=== PATIENT | female | born 1975 | race Caucasian/White ===

== ENCOUNTER 2020-01-26 12:59 | Outpatient (CLI) | payer BC, SELFPAY ==
--- NOTE | 2020-01-26 12:45 | XR_ITS ---
WS: [id number] ABDOMEN: SUPINE FILM HISTORY: UROLITHIASIS COMPARISON: 01/12/2019 Normal bowel gas pattern. No soft tissue abnormality. Numerous phleboliths in the pelvis. Right kidney: No renal or ureteral stone identified. Left kidney: No renal or ureteral stone identified. XR/XR KUB [id number] IMPRESSION: No renal or ureteral calcifications identified.
== END 2020-01-26 13:00 | disposition home or self-care (01) ==
LOC: RAD 13:02
PROVIDERS: PCP Electrodiagnostic Medicine; Visit Provider Urology
DX: N20.9 Urinary calculus, unspecified (principal)
CPT/HCPCS: 74018; 81001

== ENCOUNTER → 2020-02-21 14:58 | Outpatient (BNVA) | payer BC, SELFPAY | PROVIDERS: PCP Electrodiagnostic Medicine; Visit Provider Obstetrics & Gynecology | DX: N93.9 Abnormal uterine and vaginal bleeding, unspecified (principal); N85.2 Hypertrophy of uterus; D25.9 Leiomyoma of uterus, unspecified; N83.292 Other ovarian cyst, left side | CPT/HCPCS: 76830 ==

== ENCOUNTER → 2020-02-28 16:00 | Outpatient (BNVA) | payer BC, SELFPAY | PROVIDERS: PCP Electrodiagnostic Medicine; Visit Provider Obstetrics & Gynecology | DX: N93.9 Abnormal uterine and vaginal bleeding, unspecified (principal); Z12.4 Encounter for screening for malignant neoplasm of cervix | CPT/HCPCS: 81025; 88175 ==

== ENCOUNTER → 2020-03-01 13:05 | Outpatient (BNVA) | payer BC, SELFPAY | PROVIDERS: PCP Electrodiagnostic Medicine; Visit Provider Obstetrics & Gynecology | DX: N93.9 Abnormal uterine and vaginal bleeding, unspecified (principal); Z12.4 Encounter for screening for malignant neoplasm of cervix; Z12.39 Encounter for other screening for malignant neoplasm of breast | CPT/HCPCS: 88305 ==

== ENCOUNTER 2020-03-30 10:26 | Outpatient (CLI) | payer BC, SELFPAY ==
--- NOTE | 2020-03-30 10:30 | MM_ITS ---
WS: [id number] SCREENING DIGITAL MAMMOGRAM WITH CAD HISTORY: screening COMPARISON: 07/10/2018 and 06/02/2017 and 09/23/2014 Bilateral CC and MLO views submitted. Computer aided detection analyzed. Breast composition: The breasts are heterogeneously dense, which may obscure small masses. No suspici ous masses, microcalcifications or architectural distortion. MM/[id number] IMPRESSION: BI-RADS: 2-Benign FOLLOW UP: 1 Year Follow-up
== END 2020-03-30 10:27 | disposition home or self-care (01) ==
LOC: RADSHAW 10:28
PROVIDERS: PCP Electrodiagnostic Medicine; Visit Provider Obstetrics & Gynecology
DX: Z12.31 Encounter for screening mammogram for malignant neoplasm of breast (principal)
CPT/HCPCS: 77067

== ENCOUNTER → 2020-06-30 12:21 | Outpatient (BNVA) | payer BC, SELFPAY | PROVIDERS: PCP Electrodiagnostic Medicine; Visit Provider Obstetrics & Gynecology | DX: Z11.59 Encounter for screening for other viral diseases (principal) | CPT/HCPCS: 87635 ==

== ENCOUNTER 2020-07-06 10:14 | Inpatient (IN) | payer BC, SELFPAY ==
--- NOTE | 2020-07-03 08:59 | P.ANESASSM_ITS ---
Pre-Anesthetic Assessment Pre-Anesthetic Assessment: Height/Weight: Height 1.6 m Preop Diagnosis: abnormal uterine bleeding Proposed Procedure: Operation Date: 07/06/20 07:00 Proposed Procedures p Laparoscopic Assist Vaginal Hystectomy possible total abdominal hysterectomy, bilateral salpingectomy,possible oophorectomy 84928 N93.9 D25.9(Not Applicable) - Kenn Sahu MD s Salpingectomy possible oophorectomy(Bilateral) - Kenn Sahu MD Familial anesthetic complications: None Was Beta Ok taken within 24 ho urs: N/A Social: Social History: No alcohol and No tobacco Exam: Pre-Anes Outpt Exam: alert, oriented x 3, clear to auscultation bilaterally and regular rate & rhythm Airway: Cervical ROM: WNL MP: 2 Dentition: Full Neuropsych: Neuropsych: Anxiety and ARGUELLO Anesthetic Plan: ASA status: 1 Anesthesia: General Risk of > 500 ml blood loss (7ml/kg in children): No PFSH Anesthesia PFSH: Medical History Anxiety Diagnosed in 2005 and controlled with citalopram prescribed by Dr. Hill. She denies depressive symptoms No pertinent past medical history Denies history of: Hypertension, hypercholesterolemia, thyroid, heart, liver, lung disorders, DVT/PE, bleeding or clotting disorders. PCP: Dr. Hill Urolithiasis Has had problems with kidney stones since. Follows with Dr. Rosenthal. Surgical History History of extraction of renal calculus RIGHT URETERAL STONE EXTRACTION by Dr. Rosenthal in 2018 S/P ureteral stent placement [address] Rosenthal S/P wisdom tooth extraction Family History Father Chronic fatigue and immune dysfunction syndrome Diabetes Hyperlipidemia Hypertension Sister Breast cancer Diagnosed at age 32 Grandmother Colon cancer Maternal, diagnosed in her 50s Family/Other Colon cancer Maternal uncle, diagnosed in his 50s Mother Uterine cancer Diagnosed at age 68 Denies family history of Heart disease Thyroid condition Stroke Social History Smoking and tobacco status: never smoked Alcohol intake: unknown Data Anesthesia CBC & Chem 7: 07/03/20 09:15 Cardiac Studies: No Data to Display
[2020-07-03 09:08] VITALS: BMI 43.4
[2020-07-03 09:44] LABS: Basophils # 0.1 10^3/uL (0.0-0.1); Basophils % 0.9 %; Eosinophils # 0.3 10^3/uL (0.0-0.8); Eosinophils % 3.6 %; Hematocrit 39.9 % (37.0-47.0); Hemoglobin 12.2 g/dL (11.5-15.3); Lymphocytes # 1.3 10^3/uL (0.8-4.8); Lymphocytes % 18.9 %; Mean Corpuscular HGB Conc 30.6 g/dL (30.0-36.0); Mean Corpuscular Hemoglobin 24.3 pg (28.0-34.0); Mean Corpuscular Volume 79.5 fL (81-99); Mean Platelet Volume 9.9 fL (7.4-10.4); Monocytes # 0.4 10^3/uL (0.2-0.9); Monocytes % 5.9 %; Neutrophils # 4.91 10^3/uL (1.8-7.7); Neutrophils % 70.3 %; Nucleated Red Blood Cells % 0 %; Platelet Count 313 10^3/cmm (130-400); Red Blood Count 5.02 10^6/uL (4.1-5.3); Red Cell Distribution Width 14.2 % (12.1-15.1)
[2020-07-06] VITALS (20 sets, daily range): BP systolic 102–143; BP diastolic 50–83; PULSE 73–102; RESP 15–26; TEMP 36.6–37.2; O2SAT 92–98
[2020-07-06] MEDS: sodium chloride 0.9% 500 ML IV (06:20)
--- NOTE | 2020-07-06 06:24 | P.ANESUD_ITS ---
Pre-Anesthetic Update Pre-Anesthetic Assessment: Date of Surgery/Procedure: 07/06/20 Preop Steffanie gnosis: Abnormal uterine bleeding, fibroid uterus Proposed Procedure: Operation Date: 07/06/20 07:00 Proposed Procedures p Laparoscopic Assist Vaginal Hystectomy possible total abdominal hysterectomy, bilateral salpingectomy,possible oophorectomy 35497 N93.9 D25.9(Not Applicable) - Kenn Sahu MD s Salpingectomy possible oophorectomy(Bilateral) - Kenn Sahu MD Any changes to Pre-Anesthetic Assessment?: No Last Intake: Intake Last Liquid Date 07/05/20 Last Liquid Time 21:00 Last Solid Date 07/05/20 Last Solid Time 19:00 Vitals: Temperature 99 F 07/06/20 06:08 Temperature Source Temporal Artery S can 07/06/20 06:08 Pulse Rate 92 07/06/20 06:08 Pulse Rhythm 07/06/20 06:08 Pulse Strength 3+ Normal 07/06/20 06:08 Respiratory Rate 18 07/06/20 06:08 Blood Pressure 143/83 07/06/20 06:08 Blood Pressure Eduarda n 103 07/06/20 06:08 Pulse Oximetry 96 07/06/20 06:08 Oxygen Delivery Me thod 07/06/20 06:08 Exam: Pre-Anes Outpt Exam: alert, oriented x 3, clear to auscultation bilaterally and regular rate & rhythm Cardiac Studies: No Data to Display
[2020-07-06 06:50] LABS: OR HCG Qualitative Urine Negative (Negative)
--- NOTE | 2020-07-06 06:53 | W.PM.OPSUD ---
Surgery/Procedure H&P Update DATE OF PROCEDURE: July 06, 2020 DATE H&P PERFORMED: 06/12/20 H&P UPDATE INFORMATION: I have reviewed H&P completed within last 30 days, I have examined patient prior to procedure, No changes to prior documentation and H&P is in [facility] on date indicated PREOP DIAGNOSIS: Abnormal uterine bleeding, fibroid uterus PLANNED PROCEDURE: Operation Date: 07/06/20 07:00 Proposed Procedures p Laparoscopic Assist Vaginal Hystectomy possible total abdominal hysterectomy, bilateral salpingectomy,possible oophorectomy 75605 N93.9 D25.9(Not Applicable) - Kenn Sahu MD s Salpingectomy possible oophorectomy(Bilateral) - Kenn Sahu MD
[2020-07-06] MEDS: sodium chloride 0.9% 1,000 ML 30 ML IV (06:54)
--- NOTE | 2020-07-06 08:32 | SUR.OPER ---
Family Notified Of Patient's Status Via Phone.
--- NOTE | 2020-07-06 10:27 | P.OP_ITS ---
Operative Report Date of procedure: July 06, 2020 OPERATIVE REPORT Date of surgery: 07/06/2020 Date of dictation: 07/06/2020 Preoperative diagnosis: Fibroid uterus, abnormal uterine bleeding, obesity, dysmenorrhea Postoperative diagnosis/findings: Enlarged 14-week size fibroid uterus, 10 sedations obliterating the posterior cul-de-sac, normal ovaries bilaterally, normal right fallopian tube, enlarged left fallopian tube likely hydrosalpinx. Procedure done: Attempted laparoscopic hysterectomy converted to Total abdominal hysterectomy, bilateral salpingectomy, left oophorectomy. Specimens removed/disposition of specimens: Uterus, cervix, bilateral tubes, left ovary-sent to pathology Surgeon: Dr. Kenn Jiang Physician purchasing administrative assistant: Dr. avina Systems Integration Advisor: Keiry Anesthesia: General endotracheal tube anesthesia Estimated blood loss: 200 ml Intravenous fluids: 2 L of LR Urine output: 800 mL of clear urine at the end of the procedure. Medications: As per anesthesia records Complications: Attempted laparoscopic hysterectomy converted to open procedure given density lesions and obliteration of the posterior cul-de-sac and limited visualization secondary to the enlarged fibroid uterus making surgery more complicated. PROCEDURE: After consents were obtained, she was taken to the operating room where she was placed under general endotracheal tube anesthesia without any difficulty. She was placed supine on the table in lithotomy position. Her legs were placed in stirrups and care was taken to avoid pressure points. Exam under anesthesia revealed 12 to 14 weeks size anteverted enlarged uterus consistent with fibroid uterus. No adnexal masses.. She was then prepped and draped in usual sterile fashion. Weighted speculum and anterior wall retractors were placed in the vagina, cervix visualized and grasped with a tenaculum. ZUMI uterine manipulator was placed into the uterus without any difficulty. Reagan Catheter was placed, instruments were removed from the vagina and the legs were lowered. Attention was turned towards the abdomen where half percent Marcaine with epinephrine was injected in to her umbilicus. A 10 mm skin incision was made and a 10 mm port was placed through the umbilicus using an open Antunez technique. Once intra-abdominal entry was confirmed gas was turned on and intra-abdominal opening pressure was 2. The abdomen is insufflated until the pressure was 13. Survey of the abdomen no ideations at site of entry and no trauma at site of entry. No other gross abnormality were identified. The uterus was enlarged with fibroids consistent with preoperative diagnosis. The posterior cul-de-sac was not visualized secondary to filmy adhesions and decision was made to place later al ports in order to visualize the structures. Two 5 mm trocar was placed into the right and left lower quadrant under direct visualization after injecting Marcaine. -Using the Voyant and blunt dissection the filmy adhesions of the omentum onto the posterior aspect of the uterus were taken down. The right tube and ovary appeared normal. The uterus appeared to be more adherent to the left side and the left tube noted to be enlarged with hydro-/pyosalpinx and densely adherent to the posterior uterine wall and sidewall. Ovary appeared normal. These adhesions were taken down-about 20 minutes was spent on adhesiolysis. Once this was done there was some improvement in mobility although the enlarged fibroid uterus did make visualization especially in the posterior cul-de-sac a little bit more complicated. A 5 mm Voyant was introduced into the abdomen and the left infundibulopelvic ligament was clamped, cauterized x3 and then cut. No bleeding was noted. During this time a third 5 mm port was placed in the right lower quadrant to aid with surgery as the enlarged uterus made visualization difficult The voyant was used clamp cauterize and then cut the broad ligament under the fallopian tube and proceeding inferiorly just lateral to the uterus. The round ligament was also clamped, cauterized and cut. In this way the left fallopian tube, ovary and left side of the uterus was from the parametria. This was continued to the level just above the cervix. The same procedure was repeated on the right side and using the LigaSure -the right infundibulopelvic ligament, fallopian tube and round ligament were grasped, cauterized and cut. Good hemostasis was noted.The right-side of the uterus was thus freed from the parametria in a similar fashion. The ureters were visualized bilaterally well away from site of surgery. Next the anterior bladder flap was created and the bladder was pushed down. The uterine artery on the right side was able to be clamped and cut however the uterine artery and the left right was hard to clamp and cauterize given adhesions. Given poor visualization and continued radiations in the posterior cul-de-sac decision was made to convert to open surgery. All instruments removed from the abdomen and the abdomen was desufflated. Trochars were removed with the blunt probe in place. The ZUMI was removed from the uterus. A Pfannenstiel incision was made 2 cm above the pubic bone and this was carried down to the fascia using a combination of sharp and cautery dissection. Good hemostasis was achieved on the subcutaneous plane. The fascia was nicked in the midline and extended laterally using scissors. The fascia was then dissected off the underlying rectus muscle and the rectus muscle was in the midline and peritoneum entered bluntly. The peritoneal incision was stretched. The O'Suman-O'Hernadez retractor was placed after packing away the underlying bowel. With this the fibroid uterus was visualized. It was hard to get to the cervix past to be enlarged fibroid uterus and the body of the uterus was sharply cut off from the cervix using a scalpel taking care to avoid surrounding structures. Once this was done good visualization was obtained. The bladder was then off from the remainder of the cervix without any difficulty. The left uterine vessels were skeletonized clamped and tied off. Curved clamps were placed at the level of the internal os. These were cut, and then tied with 0 Vicryl suture bilaterally. The bladder was then sharply dissected away from the cervix until it was carried below the level of the cervix. The remaining portion of the parametria was then serially clamped, cut, and suture ligated with 0 Vicryl suture bilaterally until the bottom of the cervix was reached. At this point, sharply curved clamps were placed across the top of the vagina and the remaining portion of the cervix excised. With this the uterus and cervix were removed. The cervix was inspected and noted to be complete. The corners of the cuff were secured with 0 Vicryl suture in a Cate fashion bilaterally. The remaining portion of the vaginal cuff was closed with 0 Vicryl suture in an interrupted [id number] fashion. The area was thoroughly inspected and noted to be hemostatic. It was irrigated and noted to be hemostatic. Attention was then turned towards the left fallopian tube and ovary. It was grasped with a [place], IP ligament was in identified, the ureter was identified well away from the site of surgery. The IP ligament was then doubly clamped and suture ligated as well as free tied . With this the left fallopian tube and ovary was also removed and sent to pathology. Good hemostasis was noted at the IP ligament site. The right fallopian tube was grasped and the mesosalpinx identified clamped cut and tied in such a way to separate the entire right fallopian tube which was sent to pathology. Bilateral ureters were visualized and good peristalsis was noted. The right ovary appeared normal. The pelvis was irrigated once again and small area of oozing near the left of was made hemostatic with a [id number]-ar-pvwwl suture. With this good hemostasis was achieved. Surgicel was placed over the vaginal cuff. The packing and retractor was removed. The peritoneum was closed with a 2-0 plain in a continuous stitch. The rectus muscle was reapproximated with 2-0 plain suture in a mattress stitch. Good hemostasis was noted in the rectus muscle layer. The fascia was inspected for any defects and none were found and the fascia was closed with 0 Vicryl in continuous stitch. The subcutaneous plane was then irrigated and hemostasis was obtained using the Bovie. The subcutaneous plane was then reapproximated using 2-0 plain suture in a continuous manner. The skin was then closed with 4-0 Monocryl in a subcuticular fashion. Good reapproximation and hemostasis was noted. Steri-Strips were applied. The fascia on the umbilicus was closed with 0 Vicryl on a UR needle and good approximation was obtained. The skin incision on all 3 ports was closed with 4-0 Monocryl in a subcuticular fashion. Good reapproximation and hemostasis was noted. Marcaine was injected on the port sites. The incisions were dressed with Steri-Strips, Telfa and Tegaderm. Lap instrument and needle counts were correct x2. Patient was extubated without difficulty and taken to the recovery room in a stable condition. Reagan catheter was left in place. Pre-op Diagnosis: Abnormal uterine bleeding, fibroid uterus
--- NOTE | 2020-07-06 10:44 | SUR.PHASEI ---
1028 PT TO PACU SLEEPY WITH GOOD RESP PT OPENS EYES TO VERBAL STIMULI BUT DOES NOT RESPOND, VSS ABD LARGE SOFT WITH MULTIPLE SITES AND LARGE LOWER ABD DRESSING ALL D/I SCDS ON, VANG TO DD WITH STATLOCK TO RT THIGH, CLEAR URINE NOTED TO TUBING AND BAG. IV TO LT HAND #18 PATENT. 1045 PT ON RA TRIAL, PT DENIES PAIN AND NAUSEA, VSS
--- NOTE | 2020-07-06 10:50 | PM.PACU ---
PACU note Post-Anesthesia Exam: awake and vital signs stable Disposition: admitted
--- NOTE | 2020-07-06 11:17 | SUR.PHASEI ---
1105 PT TO FLOOR PER BED PT MORE AWAKE, NOW C/O OF CRAMPING (PAINFUL). PT MOVED TO BED WITH ASSIST OF 3 NURSES AND SLIDE BOARD, ABD SOFT DRESSING D/I ANA PAD D/I VANG PATENT. HANDOFF AT BEDSIDE WITH LANI SANABRIA.
--- NOTE | 2020-07-06 11:18 | SUR.PHASEI ---
1105 BP 128/75, HRE 78, RESP 18 SATS ON 2LNC 96%
[2020-07-06] MEDS: HYDROcodone-acetaminophen 5-325 mg Tablet PO ×3 (11:28→21:30)
[2020-07-06] MEDS: HYDROmorphone 1 mg/mL INJ 1 mL 1.5 MG IVP ×3 (11:28→22:41)
[2020-07-06] MEDS: ketorolac 30 mg/mL INJ 15 MG IVP (13:19)
[2020-07-06] MEDS: ondansetron 2 mg/ML SDV 2 mL 4 MG IVP ×2 (17:11→21:11)
[2020-07-07] MEDS: dextrose 5%-lactated ringers 1,000 ML 125 ML IV (02:52)
[2020-07-07] MEDS: ondansetron 2 mg/ML SDV 2 mL 4 MG IVP (04:38)
[2020-07-07] MEDS: HYDROcodone-acetaminophen 5-325 mg Tablet PO ×3 (05:02→16:47)
[2020-07-07 05:10] VITALS: BP 126/77; PULSE 62; RESP 16; TEMP 36.9; O2SAT 96
[2020-07-07 05:30] LABS: Hematocrit 34.5 % (37.0-47.0); Hemoglobin 10.4 g/dL (11.5-15.3); Mean Corpuscular HGB Conc 30.1 g/dL (30.0-36.0); Mean Corpuscular Hemoglobin 24.3 pg (28.0-34.0); Mean Corpuscular Volume 80.6 fL (81-99); Mean Platelet Volume 9.9 fL (7.4-10.4); Platelet Count 282 10^3/cmm (130-400); Red Blood Count 4.28 10^6/uL (4.1-5.3); Red Cell Distribution Width 14.5 % (12.1-15.1); White Blood Count 9.7 10^3/uL (4.0-10.0)
[2020-07-07] MEDS: diphenhydrAMINE 50 mg/mL SDV 1mL 12.5 MG IVP (08:24)
[2020-07-07] MEDS: docusate sodium 100 mg Capsule PO ×3 (08:24→18:08)
[2020-07-07 08:38] VITALS: BP 135/77; PULSE 82; RESP 17; TEMP 37.3
--- NOTE | 2020-07-07 09:48 | P.PN_ITS ---
Subjective Subjective: Interval history: SUBJECTIVE: Ms. Banda is feeling okay today. Has less pain than she did yesterday and reports having not as much nausea. She still has a lot of itching however the had not mentioned this to the nurses and has not taken any medication for this. She has done the incentive spirometer a few times. She has not voided since removal of the catheter and has not yet ambulated this morning. She does plan on being more mobile today. She has a few questions about surgery. OBJECTIVE/PHYSICAL EXAM: Gen.: No acute distress Heart: S1-S2 heard, regular rate and rhythm Lungs: Clear to auscultation bilaterally Abdomen: Soft, nondistended, hypoactive bowel sounds, tenderness around incisions Incision: Dressings removed, clean dry and intact with Steri-Strips. Legs: No calf tenderness, no pedal edema, SCDs in place. ASSESSMENT AND PLAN: 44-year-old 2 para 2-0-0-2 status post attempted LAVH converted to JAKE, postoperative day #1 -Continue routine care-encourage ambulation and incentive spirometer use -Stick to p.o. pain medication and possible and avoid IV pain medicine -Benadryl as needed for pruritus -Clear liquid diet at this time until passing flatus and will then advance diet further -Reagan catheter has been discontinued-close follow-up on patient voiding -Continue IV fluids until patient tolerates full liquid diet and then will consi jarek dropping down IV fluid dose -SCDs on while in bed -Hemoglobin stable at this time and vital signs otherwise normal -Anticipate patient will stay another 1 or 2 nights depending on recovery from surgery. Vitals/I&O/Wt Last Vital Signs Temp 99.1 F 07/07/20 08:38 Pulse 82 07/07/20 08:38 Resp 17 07/07/20 08:38 BP 135/77 07/07/20 08:38 Pulse Ox 96 07/07/20 05:10 07/06/20 07/07/20 07/07/20 22:59 06:59 14:59 Intake Total 50 / 1110 502.083 / 1612.083 Output Total 670 / 2420 1050 / 3470 150 / 150 Balance -620 / -1310 -547.917 / -1857.917 -150 / -150 Physical Exam Urinary Catheter Management^: Reagan: Cath Placed During This Visit: yes, but has since been removed by the nurse Reason for Continuing Indwelling Catheter: Decision to DC Catheter Urinary Catheter Date of Insertion: 07/06/20 Urinary Catheter Time of Insertion: 07:35 Date Urinary Catheter Removed: 07/07/20 Time Urinary Catheter Discontinued: 05:45 Data : 07/07/20 05:09 Attestations Medical Necessity Statement*: Patient will need to stay 1 or 2 midnights to recover from open surgery Coding Level of Care Code Acute Patient Financial Rep for Fiona Pressley
[2020-07-07] MEDS: ibuprofen 800 mg tablet PO ×2 (10:34→18:07)
--- NOTE | 2020-07-07 11:04 | ANE.PACU2 ---
Inpatient post-anesthesia follow up: Airway intact: Yes Vital signs: Temperature 99.1 F Pulse Rate 82 Respiratory Rate 17 Blood Pressure 135/77 Pulse Oximetry 96 Oxygen Delivery Me thod Room Air Oxygen Flow Rate 1 Fraction of Inspir ed Oxygen Hydration adequate: Yes Nausea and vomiting: No Pain level: 1 Mental status: Baseline
--- NOTE | 2020-07-07 11:41 | PC.NURSE ---
Patient stated she was feeling good. No nausea or vomiting, ambulating well in the halls. Diet advanced from a clear liquid to a full liquid diet at this time.
[2020-07-07 12:58] VITALS: BP 117/68; PULSE 82; RESP 18; TEMP 36.9; O2SAT 95
[2020-07-07 15:48] VITALS: BP 124/76; PULSE 83; RESP 18; TEMP 36.8
--- NOTE | 2020-07-07 15:52 | PC.NURSE ---
Hypoactive bowel sounds auscultated in all four quadrants.
--- NOTE | 2020-07-07 18:43 | PC.NURSE ---
Active bowel sounds in all four quadrants auscultated at this time. Patient states she is passing a little gas.
[2020-07-07 21:45] VITALS: BP 115/74; PULSE 87; RESP 18; TEMP 36.9
[2020-07-08] MEDS: ibuprofen 800 mg tablet PO ×2 (03:37→09:58)
[2020-07-08 03:39] VITALS: BP 126/69; PULSE 81; RESP 16; TEMP 36.4
--- NOTE | 2020-07-08 07:45 | PC.NURSE ---
Pt up ambulating in hallways. Pt put in a total of [address] Jiang has requested pt to ambulate 10laps by 1300. Pt tolerated well and states she overall is feeling good.
[2020-07-08 09:50] VITALS: BP 127/81; PULSE 83; RESP 16; TEMP 36.8; O2SAT 95
[2020-07-08] MEDS: docusate sodium 100 mg Capsule PO (09:58)
--- NOTE | 2020-07-08 13:43 | P.DS_ITS ---
Discharge Providers Date of Admission: 07/06/20 11:23 Date of Discharge: July 08, 2020 Attending Provider at Admission: Kenn Sahu MD Attending Provider at Discharge: Kenn Sahu MD Primary Care Provider: Milan Hill DO Reason for Visit Reason for Visit: laparoscopic assisted vaginal hysterectomy, possib Hospital Course Discharge Summary Ms. Banda is a 44-year-old 2 para 2-0-0-2 who presented on 07/06/2020 for scheduled surgery for menorrhagia/abnormal uterine bleeding and abdominal pain secondary to a fibroid uterus. She underwent a laparoscopic hysterectomy converted to total abdominal hysterectomy and bilateral salpingectomy and left oophorectomy on 07/06/2020. Please refer to operative report for details of surgery. On postoperative day 0 she did well and pain was well controlled with IV pain medicines. She was pretty nauseous and nausea medicines did help with her symptoms. She tolerated clear liquid diet and had a catheter. On postoperative day #1 catheter was removed and patient ambulated well. Pain was well-controlled with p.o. pain medication and nausea had improved. She was advanced to full liquid diet which she tolerated without any difficulty. Incisions were clean dry and intact and she had no other abnormal exam. Postoperative day #1 lab work was stable without any signs of infection or bleeding. SCDs were continued for DVT prophylaxis. On postoperative day #2 she did well passed flatus and tolerated regular diet and she was discharged home in stable condition on 07/08/2020. Emergency room precautions were reviewed with her and all her questions were answered to her satisfaction. She will follow up in the clinic for an incision check. Warning signs for wound infection, cuff infection, DVT/PE were reviewed with her. Post surgical activity restrictions were also reviewed with her at all her questions were answered to her satisfaction. Physical Exam Urinary Catheter Management^: Reagan: Cath Placed During This Visit: yes, but has since been removed by the nurse Reason for Continuing Indwelling Catheter: Decision to DC Catheter Urinary Catheter Date of Insertion: 07/06/20 Urinary Catheter Time of Insertion: 07:35 Date Urinary Catheter Removed: 07/07/20 Time Urinary Catheter Discontinued: 05:45 Discharge Data Data Completed and Pending: Pending at discharge Category Date Time Status ES surgery / GI i mages Routine Exams 07/06/20 06:23 Taken Pathology: Surgic al [PTH] Routine Pth 07/06/20 09:44 Received Vitals: Last Vital Signs Temp 98.3 F 07/08/20 09:50 Pulse 83 07/08/20 09:50 Resp 16 07/08/20 09:50 BP 127/81 07/08/20 09:50 Pulse Ox 95 07/08/20 09:50 Discharge Plan Discharge Patient Disposition: Home Condition: Stable Prescriptions: New ibuprofen 800 mg tablet 800 mg PO Q8H Qty: 30 RF: 0 Continued citalopram 40 mg tablet 40 mg PO DAILY RF: 0 loratadine [Claritin] 10 mg tablet 10 mg PO DAILY RF: 0 Discontinued naproxen sodium [Aleve] 220 mg tablet 220 mg PO BID PRN (Reason: Pain) RF: 0 Discharge Orders: Discharge Order (Routine); Ordered 07/08/20 Ordered By: Kenn Sahu Referrals: Kenn Sahu MD [Physician] - (3 and 6 week f/u) Patient Instructions: OB Abdominal Surgery - [facility], OB Discharge Report, OB Food/Drug Interaction Guide Activity Restrictions/Additional Instructions: No heavy lifting for 6 weeks, pelvic rest for 6 weeks Discharge Attestations Time Spent in Discharge Care*: greater than 30 min Quality Metrics Clinical Quality Measures During this hospital stay, did patient experience: None Coding Level of Care Code Acute Sdc Teacher for Fiona Pressley
[2020-07-08 14:20] VITALS: BP 128/86; PULSE 84; RESP 16; TEMP 36.9; O2SAT 96
== END 2020-07-08 14:30 | disposition home or self-care (01) | DRG 742 ==
LOC: OBGYN 10:14
PROVIDERS: Admitting Provider Obstetrics & Gynecology; PCP Electrodiagnostic Medicine; Visit Provider Obstetrics & Gynecology
PROC: 0UT9FZZ Resection of Uterus, Via Natural or Artificial Opening With Percutaneous Endoscopic Assistance (ICD-10-PCS; principal; 2020-07-06 07:00)
PROC: 0UT90ZZ Resection of Uterus, Open Approach (ICD-10-PCS; CPT 58150; 2020-07-06 07:00)
DX: D25.9 Leiomyoma of uterus, unspecified (principal); Z68.41 Body mass index [BMI] 40.0-44.9, adult; F41.9 Anxiety disorder, unspecified; Z87.442 Personal history of urinary calculi; N93.9 Abnormal uterine and vaginal bleeding, unspecified; E66.09 Other obesity due to excess calories; N94.6 Dysmenorrhea, unspecified
CPT/HCPCS: 12345; 36415; 81025; 84703; 85025; 85027; 86850; 86900; 88307; 96365; 96375; G0378; J0690; J1100; J1170; J1200; J1885; J2250; J2405; J2704; J2710; J3010; J3490; J7030; J7040

== ENCOUNTER 2021-01-25 08:20 | Outpatient (CLI) | payer OTHER, SELFPAY ==
--- NOTE | 2021-01-25 09:15 | XR_ITS ---
WS: [id number] Exam: XR KUB [id number] Date/Time of Exam: 01/25/2021 8:32 AM Reason For Exam: N20.9 - Urinary calculus, unspecified Comparison 01/26/2020. No bowel obstruction or free air. No calcifications noted in the region of the kidneys. Visualized or cierra margins appear normal. Regional bony structures are unremarkable. Moderate amount retained stool in the colon. XR/XR KUB [id number] IMPRESSION: 1. No acute abdominal finding. 2. No calcifications seen in the region of the kidneys.
== END 2021-01-25 08:21 | disposition home or self-care (01) ==
LOC: RAD 08:25
PROVIDERS: PCP Electrodiagnostic Medicine; Visit Provider Urology
DX: N20.9 Urinary calculus, unspecified (principal)
CPT/HCPCS: 74018; 81003

== ENCOUNTER 2021-04-02 09:46 | Outpatient (CLI) | payer OTHER, SELFPAY ==
--- NOTE | 2021-04-02 10:00 | MM_ITS ---
WS: [id number] Bilateral screening digital mammogram, 04/02/2021 Clinical Data: Z12.39 - Encounter for other screening for malignant neop... Comparison: 03/30/2020, 07/10/2018, 06/02/2017, 05/15/2017, 09/23/2014. Findings: The breast parenchymal pattern shows heterogeneous density No spiculated masses or clustered calcific ations are seen. There are no secondary signs of carcinoma. MM/[id number] Impression: 1. Negative bilateral mammogram unchanged. 2. Recommend annual screening mammograms. BIRADS: 1-Negative FOLLOW UP: 1 Year Follow-up The CAD inventory checker was used.
== END 2021-04-02 09:47 | disposition home or self-care (01) ==
LOC: RADSHAW 09:49
PROVIDERS: PCP Electrodiagnostic Medicine; Visit Provider Obstetrics & Gynecology
DX: Z12.31 Encounter for screening mammogram for malignant neoplasm of breast (principal)
CPT/HCPCS: 77067

== ENCOUNTER 2021-09-14 10:08 | Outpatient (CLI) | payer OTHER, SELFPAY ==
[2021-09-14 10:22] VITALS: BP 133/83; PULSE 93; RESP 18; TEMP 36.9; O2SAT 98; BMI 39.4
[2021-09-14 11:02] VITALS: BP 125/81; PULSE 79; RESP 16; TEMP 36.6; O2SAT 98
[2021-09-14 12:02] VITALS: BP 131/88; PULSE 79; RESP 18; TEMP 36.6; O2SAT 98
== END 2021-09-14 10:09 | disposition home or self-care (01) ==
LOC: OPS 10:11
PROVIDERS: PCP Electrodiagnostic Medicine; Visit Provider Electrodiagnostic Medicine
DX: U07.1 COVID-19 (principal)
CPT/HCPCS: 96365

== ENCOUNTER 2022-01-27 14:18 | Emergency (ER) | payer OTHER, SELFPAY ==
[2022-01-27 14:20] VITALS: BP 145/79; PULSE 84; RESP 14; TEMP 36.6; O2SAT 97; BMI 40.7
--- NOTE | 2022-01-27 14:22 | XRR_ITS ---
PROCEDURE INFORMATION: Exam: XR Left Elbow Exam date and time: 01/27/2022 2:30 PM Age: 46 years old Clinical indication: Injury or trauma; Fall; Blunt trauma (contusions or hematomas); Elbow; Left TECHNIQUE: Imaging protocol: XR Left elbow. Views: 1 or 2 views. COMPARISON: No relevant prior studies available. FINDINGS: Bones/joints: There is posterior dislocation of the olecranon and radial head. Small concave defect at the posterior aspect of the capitellum is consistent with an impaction fracture. Elbow joint effusion. Soft tissues: There is edema in the soft tissues. XR/XR elbow LT 2V [id number] IMPRESSION: There is posterior elbow dislocation including the olecranon and radial head with an associated impaction fracture at the posterior aspect of the capitellum.
--- NOTE | 2022-01-27 14:29 | ED_ITS ---
HPI - Extremity Problem General: Chief complaint: Extremity Injury, Upper Stated complaint: Left elbow injury Time Seen by Provider: 01/27/22 14:24 Source: patient Mode of arrival: ambulatory Limitations: no limitations History of Present Illness: 46-year-old female states that she had tripped and fell and tried to catch her self with her left arm and has left elbow pain after that. States pain sharp in nature and is much worse with movement or palpation denies any other injuries patient is ambulatory denies hitting her head. Associated symptoms: Deny chest pain, fever(s) or rash Review of Systems Const: Denies: fever(s), chills, body aches or change in appetite Eyes: Denies: blurry vision or eye discomfort ENMT: Denies: throat pain or dental pain Card: Denies: chest pain Resp: Denies: dyspnea GI: Denies: abdominal pain, nausea, vomiting or diarrhea : Denies: dysuria Musc: Reports: extremity pain; Denies: neck pain or back pain Skin/Breast: Denies: rash Neuro: Denies: headache(s) Psych: Denies: depression Jraett/Lymph: Denies: easy bruising All/Imm: Denies: urticaria PFSH ED PFSH: Medical History Anxiety Diagnosed in 2006 and controlled with citalopram prescribed by Dr. Hill. She denies depressive symptoms No pertinent past medical history Denies diabetes, asthma, hypertension, seizures, DVT/PE PCP: Dr. Hill Urolithiasis Has had problems with kidney stones since. Follows with Dr. Rosenthal. Surgical History History of extraction of renal calculus RIGHT URETERAL STONE EXTRACTION by Dr. Rosenthal in 2018 S/P ureteral stent placement [address] Rosenthal S/P wisdom tooth extraction Status post hysterectomy 07/06/2020--attempted LAVH converted to JAKE, bilateral salpingectomy and left oophorectomy performed by Dr. Jiang assisted by Dr. Denny at [facility] [place]. At time of surgery patient was noted to have enlarged fibroid uterus however also had signs of PID with hydro-/pyosalpinx of left tube and density lesions in the cul-de-sac which complicated surgery necessitating open surgery. Right ovary was normal and not removed. -Pathology showed secretory endometrium with acute and chronic endometritis, no atypia polyp or malignancy. Myometrium shows fibroids, left fallopian tube shows hydrosalpinx and acute salpingitis. Left ovary normal, right tube normal. Uterus weighs 329 g Family History (Updated 02/20/21 @ 06:35 by Kenn Sahu MD) Father Diabetes Hyperlipidemia Hypertension Sister Breast cancer Diagnosed at age 32 Grandmother Colon cancer Maternal, diagnosed in her 50s Family/Other Colon cancer Maternal uncle, diagnosed in his 50s Mother Uterine cancer Diagnosed at age 68 Lung cancer Diagnosed in 2020 Denies family history of Heart disease Thyroid condition Stroke Social History Smoking and tobacco status: never smoked Alcohol intake: unknown Female Reproductive History: Date of last menstrual period: 06/10/20 Physical Exam Const: COMMON NORMALS: no acute distress, patient oriented x3 and healthy appearing HENMT: COMMON NORMALS: normocephalic and atraumatic HEAD & SCALP: normocephalic and atraumatic Eye: COMMON NORMALS: Equal, round and reactive pupils present and EOMs intact bilaterally PUPIL: Yes Equal, round and reactive pupils present Neck/C-Spine: COMMON NORMALS: full ROM and supple Chest: COMMONS NORMALS: normal inspection of the chest and normal palpation of entire chest wall Resp: COMMON NORMALS: normal respiratory effort, No retractions, No use of accessory muscles and clear to auscultation bilaterally AUSCULTATION: clear to auscultation bilaterally Cardio: COMMON NORMALS: regular rate, regular rhythm and No murmurs present (Cardio) RATE: regular rate RHYTHM: regular rhythm GI: COMMON NORMALS: Normal to inspection, nondistended, normoactive bowel sounds present, Soft to palpation, non-tender and no masses PALPATION: Yes Soft to palpation Extremity: NARRATIVE EXTREMITY EXAM: Obvious deformity to left elbow distal pulses sensation intact Neuro: COMMON NORMALS: patient oriented x3, moves all extremities and no focal motor deficits Psych: COMMON NORMALS: mental status grossly normal, Normal thought process present and cooperative THOUGHT PROCESS: Normal thought process present Skin: COMMON NORMALS: no rashes or lesions noted and no wounds GENERAL SKIN EXAM: no rashes or lesions noted Procedures Orthopedic Joint Reduction Joint #1: Time Out Performed: Yes Side: left Joint Reduction Location: elbow Analgesia: procedural sedation Technique used: traction/counter-traction Post-reduction neuro exam: intact Post-reduction vascular: intact Post Reduction X-Ray Obtained: Yes Post Reduction X-Ray Results: reduced Splint Applied: Yes Patient Tolerated Procedure: well Procedural Sedation Indication: fracture/dislocation reduction ASA Class: I Time of Last PO Intake: 11:00 Preparation: cardiac cath rn applied, pulse oximeter and supplemental O2 applied IV Propofol dose (mg): 100 Patient Tolerated Procedure: well Complications: none Course Vital Signs: Vital signs: Vital Signs Temperature 97.9 F 01/27/22 14:20 Pulse Rate 84 01/27/22 14:20 Respiratory Rate 14 01/27/22 14:20 Blood Pressure 145/79 01/27/22 14:20 Pulse Oximetry 97 01/27/22 14:20 MDM - Extremity (Nontraumatic) Medical Decision Making Patient presents here with an elbow dislocation elbow was successfully reduced we will get follow-up with orthopedics she is to return if worsening she is neurovascularly intact after the reduction we will place her on pain meds at home Discharge Plan Discharge Patient Disposition: Home Clinical Impression: Dislocation of left elbow Qualifiers: Encounter type: initial encounter Qualified Code(s): S53.105A - Unspecified dislocation of left ulnohumeral joint, initial encounter Condition: Stable Prescriptions: New hydrocodone-acetaminophen 5-325 mg tablet 1 tab PO Q6H PRN (Reason: pain) Qty: 14 0RF No Action citalopram 40 mg tablet 40 mg PO DAILY 0RF loratadine [Claritin] 10 mg tablet 10 mg PO DAILY 0RF naproxen sodium [Aleve] 220 mg tablet 440 mg PO BID PRN0RF Complete Multivitamin Tablet 1 tab PO DAILY 0RF Adult 50 Plus Probiotic 4 billion cell capsule PO 0RF Discharge Orders: Discharge ED (Routine); Ordered 01/27/22 Ordered By: Sydney Coleman Referrals: Abel Tang DO [Physician] - 1-3 days Milan Hill DO [Primary Care Provider] - Discharge Diet: Advance as tolerated Discharge Activity: Resume usual activity Patient Instructions: Elbow Dislocation (ED), Opioid Safety Coding Level of Care Code ED Tap Puller for g Fwd Exam Comprehensive
[2022-01-27] MEDS: ondansetron 2 mg/ML SDV 2 mL 4 MG IVP (14:54)
--- NOTE | 2022-01-27 14:54 | XRR_ITS ---
PROCEDURE INFORMATION: Exam: XR Left Elbow Exam date and time: 01/27/2022 3:00 PM Age: 46 years old Clinical indication: Injury or trauma; Fall; Blunt trauma (contusions or hematomas); Elbow; Left; Additional info: Post reduction TECHNIQUE: Imaging protocol: XR Left elbow. Views: 1 or 2 views. COMPARISON: CR XR elbow LT 2V [id number] 01/27/2022 2:30 PM FINDINGS: Bones/joints: Status post reduction of the previously seen posterior elbow dislocation. Currently the radiocapitellar and ulnar humeral articulations appear to be in satisfactory alignment. Soft tissues: There is edema in the soft tissues. XR/XR elbow LT 2V [id number] IMPRESSION: Status post reduction of the previously seen posterior elbow dislocation. Currently the radiocapitellar and ulnar humeral articulations appear to be in satisfactory alignment.
[2022-01-27 14:55] VITALS: RESP 18; O2SAT 100
[2022-01-27] MEDS: morphine 4 mg/mL SDV 1 mL IVP (14:55)
[2022-01-27] MEDS: propofol 10 mg/mL SDV 20 mL 100 MG IVP (14:58)
[2022-01-27 16:10] VITALS: BP 162/72; PULSE 67; RESP 18; O2SAT 97
--- NOTE | 2022-01-27 17:06 | PC.NURSE ---
1445 Consent signed for Conscious sedation and closed reduction left elbow. Spouse at bedside and risks and benefits discussed with Dr. Coleman. 1450 Pre procedure VS obtainedL BP 166/91, R 18, Sat 97% RA. Respiratory at bedside 1458 Procedure start with Propofol administered by Dr. Coleman Initial dose: 50mg (1458). Sequential dosing of 30mg at 1459 followed by 20mg dose at 1501. Elbow reduced and xrays taken. 1515 Sling applied. Patient feeling much better, spouse returns to bedside. Physician ordered posterior/gutter splint. Webril applied to affected arm and Orthoglass applied with saloni wrap securement. Sling re applied. Explicit splint/cast care reviewed with spouse.
--- NOTE | 2022-01-28 09:20 | DCPLANNER ---
Addendum entered by Kerline Redd 02/06/22 13:55: Patient had a follow up appointment scheduled for 01.31.[address] Tang at ortho - patient did attend appointment. Original Note: assurance manager insurance had message to schedule a follow up appointment for patient with ortho. assurance manager insurance sent patients information to the front office staff at ortho. Patients information will be printed and reviewed. Clinic will call patient with appointment information.
== END 2022-01-27 16:10 | disposition home or self-care (01) ==
PROVIDERS: Emergency Provider Emergency Medicine; PCP Electrodiagnostic Medicine
DX: S53.105A Unspecified dislocation of left ulnohumeral joint, initial encounter (principal); W01.0XXA Fall on same level from slipping, tripping and stumbling without subsequent striking against object, initial encounter
CPT/HCPCS: 24600; 73070; 96374; 96375; 99152; 99284; J2270; J2405; J2704

== ENCOUNTER 2022-01-29 08:57 | Outpatient (CLI) | payer OTHER, SELFPAY ==
--- NOTE | 2022-01-29 09:04 | XR_ITS ---
WS: [id number] KUB, AP view, 01/29/2022 Clinical Data: Urolithiasis Comparison: KUB, 01/25/2021. Findings: No abnormal intraabdominal masses or calcifications are seen. There is no dilatated small bowel or ev idence of obstruction. There is a moderate amount of fecal material throughout the colon. There are phleboliths in the true pelvis. There is a levoscoliosis of the lumbar spine. XR/XR KUB [id number] Impression: Negative KUB.
== END 2022-01-29 08:58 | disposition home or self-care (01) ==
PROVIDERS: PCP Electrodiagnostic Medicine; Visit Provider Urology
DX: N20.9 Urinary calculus, unspecified (principal)
CPT/HCPCS: 74018; 81003

== ENCOUNTER → 2022-01-31 13:30 | Outpatient (BNVA) | payer OTHER, SELFPAY | PROVIDERS: PCP Electrodiagnostic Medicine; Referring Provider Emergency Medicine; Visit Provider Orthopaedic Surgery | DX: S53.105A Unspecified dislocation of left ulnohumeral joint, initial encounter (principal); X58.XXXA Exposure to other specified factors, initial encounter | CPT/HCPCS: 73080 ==

== ENCOUNTER → 2022-02-14 08:26 | Outpatient (BNVA) | payer OTHER, SELFPAY | PROVIDERS: PCP Electrodiagnostic Medicine; Visit Provider Orthopaedic Surgery | DX: S59.902A Unspecified injury of left elbow, initial encounter (principal); X58.XXXA Exposure to other specified factors, initial encounter | CPT/HCPCS: 73070 ==

== ENCOUNTER → 2022-03-07 08:08 | Outpatient (BNVA) | payer OTHER, SELFPAY | PROVIDERS: PCP Electrodiagnostic Medicine; Visit Provider Orthopaedic Surgery | DX: S59.902A Unspecified injury of left elbow, initial encounter; X58.XXXA Exposure to other specified factors, initial encounter | CPT/HCPCS: 73080 ==

== ENCOUNTER 2022-03-13 12:26 | Outpatient (RCR) | payer OTHER, SELFPAY | END 2022-03-31 23:59 | disposition home or self-care (01) | LOC: SPT 12:26 | PROVIDERS: PCP Electrodiagnostic Medicine; Referring Provider Orthopaedic Surgery; Visit Provider Orthopaedic Surgery | DX: S53.105D Unspecified dislocation of left ulnohumeral joint, subsequent encounter (principal); X58.XXXD Exposure to other specified factors, subsequent encounter | CPT/HCPCS: 97110; 97161 ==

== ENCOUNTER 2022-04-01 06:00 | Outpatient (RCR) | payer OTHER, SELFPAY | END 2022-04-18 23:59 | disposition home or self-care (01) | LOC: SPT 06:00 | PROVIDERS: PCP Electrodiagnostic Medicine; Referring Provider Orthopaedic Surgery; Visit Provider Orthopaedic Surgery | DX: Z47.89 Encounter for other orthopedic aftercare (principal); S53.105D Unspecified dislocation of left ulnohumeral joint, subsequent encounter; X58.XXXD Exposure to other specified factors, subsequent encounter | CPT/HCPCS: 97110 ==

== ENCOUNTER 2022-04-10 10:28 | Outpatient (CLI) | payer OTHER, SELFPAY ==
--- NOTE | 2022-04-10 10:32 | MM_ITS ---
WS: [id number] BILATERAL SCREENING DIGITAL TOMOSYNTHESIS MAMMOGRAM WITH CAD HISTORY: Z12.39 - Encounter for other screening for malignant neoplasm... COMPARISON: 04/02/2021 and 03/30/2020 Bilateral CC and MLO views with tomosynthesis and synthetic mammography submitted. Computer aided det ection analyzed. Breast composition: The breasts are heterogeneously dense, which may obscure small masses. No suspici ous masses, microcalcifications or architectural distortion. MM/[place] [id number] IMPRESSION: BI-RADS: 1-Negative FOLLOW UP: 1 Year Follow-up
== END 2022-04-10 10:29 | disposition home or self-care (01) ==
LOC: RAD 10:29
PROVIDERS: PCP Electrodiagnostic Medicine; Visit Provider Obstetrics & Gynecology
DX: Z12.31 Encounter for screening mammogram for malignant neoplasm of breast (principal)
CPT/HCPCS: 77063; 77067

== ENCOUNTER → 2022-10-21 08:54 | Outpatient (BNVA) | payer OTHER, SELFPAY | PROVIDERS: PCP Clinical Nurse Specialist Adult Health; Visit Provider Clinical Nurse Specialist Adult Health | DX: Z00.00 Encounter for general adult medical examination without abnormal findings (principal); F41.9 Anxiety disorder, unspecified | CPT/HCPCS: 80053; 80061; 84443; 85025 ==

== ENCOUNTER 2023-06-27 09:08 | Outpatient (CLI) | payer OTHER, SELFPAY ==
--- NOTE | 2023-06-27 09:12 | MM_ITS ---
WS: [id number] VIEWS: MLO and CC views both breasts. 3D digital tomosynthesis is also included in this exam. Comparison made with prior exam of 05/15/2017, 07/10/2018, 03/30/2020, 04/02/2021, 04/10/2022.. Findings: There was no sign of mass, architectural distortion or suspicious calcification in either breast. The breasts are heterogeneously dense which may obscure small masses. Impression: MM/[place] [id number] BI-RADS: 2-Benign finding. FOLLOW-UP: 1 Year Follow-up This mammogram was also analyzed by the Computer Aided Detection System R2 Imag e Sequins Stringer.
== END 2023-06-27 09:09 | disposition home or self-care (01) ==
LOC: RAD 09:08
PROVIDERS: PCP Clinical Nurse Specialist Adult Health; Visit Provider Clinical Nurse Specialist Adult Health
DX: Z12.31 Encounter for screening mammogram for malignant neoplasm of breast (principal)
CPT/HCPCS: 77063; 77067

== ENCOUNTER → 2023-11-24 11:01 | Outpatient (BNVA) | payer OTHER, SELFPAY | PROVIDERS: PCP Clinical Nurse Specialist Adult Health; Visit Provider Clinical Nurse Specialist Adult Health | DX: F41.9 Anxiety disorder, unspecified (principal); Z00.00 Encounter for general adult medical examination without abnormal findings | CPT/HCPCS: 80053; 80061; 83036; 85025 ==

== ENCOUNTER 2024-08-09 10:21 | Outpatient (CLI) | payer OTHER, SELFPAY ==
--- NOTE | 2024-08-09 10:30 | MM_ITS ---
WS: [id number] DIAGNOSTIC BILATERAL DIGITAL BREAST TOMOSYNTHESIS MAMMOGRAPHY WITH CAD RIGHT breast ultrasound, limited HISTORY: N64.52 - Nipple discharge, RIGHT nipple discharge. COMPARISON: 06/27/2023, 04/10/2022 TECHNIQUE: Bilateral craniocaudad, mediolateral oblique, and mediolateral views are submitted with to mosynthesis and SM. RIGHT MLO and CC spot compression. Computer aided detection utilized. Breast composition: The breasts are heterogeneously dense, which may obscure small masses. No duct dilatation or mass noted around the RIGHT nipple. There is no nipple retraction. Patient also describes an area of discomfort in the upper outer quadrant for which spot compression views were pe rformed. There is no abnormality identified. No distortion within either breast or suspicious groupin g of calcification. RIGHT breast ultrasound, limited. Ultrasound directed around the RIGHT nipple to evaluate the ducts. No dilated ducts are identified. T here is a small cyst just posterior to the nipple measuring 0.5 mm. No solid masses. No dilated ducts . Ultrasound is also performed at 10:00, 7 cm from the nipple in the area of pain. There is no mass o r shadowing. Normal appearance of the soft tissues. Fibroglandular and fibrocystic changes are identi fied in the upper outer quadrant. MM/MM diag BI tomosynthesis [id number] IMPRESSION: BI-RADS: 2 - Benign FOLLOW UP: 1 Year Follow-up No abnormalities identified to explain the nipple discharge. If bloody discharg e continues consider further evaluation by breast MRI.
--- NOTE | 2024-08-09 11:00 | US_ITS ---
WS: [id number] DIAGNOSTIC BILATERAL DIGITAL BREAST TOMOSYNTHESIS MAMMOGRAPHY WITH CAD RIGHT breast ultrasound, limited HISTORY: N64.52 - Nipple discharge, RIGHT nipple discharge. COMPARISON: 06/27/2023, 04/10/2022 TECHNIQUE: Bilateral craniocaudad, mediolateral oblique, and mediolateral views are submitted with to mosynthesis and SM. RIGHT MLO and CC spot compression. Computer aided detection utilized. Breast composition: The breasts are heterogeneously dense, which may obscure small masses. No duct dilatation or mass noted around the RIGHT nipple. There is no nipple retraction. Patient also describes an area of discomfort in the upper outer quadrant for which spot compression views were pe rformed. There is no abnormality identified. No distortion within either breast or suspicious groupin g of calcification. RIGHT breast ultrasound, limited. Ultrasound directed around the RIGHT nipple to evaluate the ducts. No dilated ducts are identified. T here is a small cyst just posterior to the nipple measuring 0.5 mm. No solid masses. No dilated ducts . Ultrasound is also performed at 10:00, 7 cm from the nipple in the area of pain. There is no mass o r shadowing. Normal appearance of the soft tissues. Fibroglandular and fibrocystic changes are identi fied in the upper outer quadrant. US/US breast RT complete [id number] IMPRESSION: BI-RADS: 2 - Benign FOLLOW UP: 1 Year Follow-up No abnormalities identified to explain the nipple discharge. If bloody discharg e continues consider further evaluation by breast MRI.
== END 2024-08-09 10:22 | disposition home or self-care (01) ==
LOC: RAD 10:23
PROVIDERS: PCP Clinical Nurse Specialist Adult Health; Visit Provider Nurse Practitioner Women's Health
DX: N64.52 Nipple discharge (principal); R92.323 Mammographic fibroglandular density, bilateral breasts
CPT/HCPCS: 76641; 77062; G0279

== ENCOUNTER → 2025-02-07 09:42 | Outpatient (BNVA) | payer OTHER, SELFPAY | PROVIDERS: PCP Clinical Nurse Specialist Adult Health; Visit Provider Clinical Nurse Specialist Adult Health | DX: I10 Essential (primary) hypertension (principal); E66.01 Morbid (severe) obesity due to excess calories; F41.9 Anxiety disorder, unspecified; N95.1 Menopausal and female climacteric states; M17.0 Bilateral primary osteoarthritis of knee | CPT/HCPCS: 80053; 80061; 82306; 84443; 85025 ==

== ENCOUNTER 2025-07-05 06:28 | Day surgery (SDC) | payer OTHER, SELFPAY ==
[2025-07-05 06:39] VITALS: BMI 42.5
[2025-07-05 06:51] VITALS: BP 147/93; PULSE 106; RESP 18; TEMP 35.9; O2SAT 95
--- NOTE | 2025-07-05 07:00 | ANES.PREANE2 ---
Pre-Anesthetic Assessment Height/Weight: Height 1.6 m Weight 108.862 kg Temp Pulse Resp BP Pulse Ox O2 Del Method 96.7 F L 106 H 18 147/93 95 Room Air 07/05/25 06:51 07/05/25 06:51 07/05/25 06:51 07/05/25 06:51 07/05/25 06:51 07/05/25 06:51 Preop Diagnosis: screening Operation Date: 07/05/25 07:30 Proposed Procedures p Colonoscopy 12727 G0121, Z12.11(Not Applicable) - Nicolas Sharma MD Was Beta Ok taken within 24 hours: N/A Was Clonidine taken within 24 hours: N/A Last intake: Intake Last Liquid Date 07/04/25 Last Liquid Time 20:30 Last Solid Date 07/10/25 Last Intake: 07:03 Social Alcohol and No tobacco Exam alert, oriented x 3, clear to auscultation bilaterally and regular rate & rhythm Airway Submandibular: within normal limits Cervical ROM: within normal limits Mallampati: Class II Dentition: full Pulmonary None reported CV/HEM None reported None reported Hepatic None reported GI None reported Metabolic None reported Musc/skel None reported Neuropsych Depression Anesthetic Plan ASA status: 3 Anesthesia: Anesthesia Evaluation Risk of > 500 ml blood loss (7ml/kg in children): No Medications/Allergies Home Medications ?Medication ?Instructions ?Recorded ?Confirmed ?Last Taken ?Type loratadine 10 mg tablet (Claritin) 10 mg PO DAILY 01/26/20 06/30/25 07/03/25 History multivitamin,oc-thhk-mpnyjeuu 1 tab PO DAILY 08/14/20 06/30/25 07/03/25 History (Complete Multivitamin tablet) naproxen sodium 220 mg tablet 220 mg PO BID 01/25/21 06/30/25 06/30/25 History (Aleve) cholecalciferol (vitamin D3) 125 125 mcg PO DAILY #30 caps 02/07/25 06/30/25 07/03/25 Rx mcg (5,000 unit) capsule citalopram 40 mg tablet 40 mg PO DAILY #90 tabs 02/07/25 06/30/25 07/04/25 Rx Magnesium Glycinate 100 mg PO DAILY 03/10/25 06/30/25 06/30/25 History calcium carbonate (Calcium 600) 600 mg PO DAILY 05/19/25 06/30/25 07/03/25 History Allergies Allergy/AdvReac Type Severity Reaction Status Date / Time No Known Allergies Allergy Verified 03/10/25 15:26 Current Medications Generic Name Dose Route Start Last Admin Trade Name Freq PRN Reason Stop Dose Admin Sodium Chloride 1,000 mls @ 15 mls/hr 07/05/25 06:33 07/05/25 06:44 Sodium Chloride 0.9% IV 07/06/25 06:32 15 mls/hr .Q24H PRN Administration COLONOSCOPY FLUIDS PFSH Anesthesia Medical History (Updated 03/10/25 @ 17:03 by Marcela Loera APN, KARLENE) Breast pain (~08/2024) Osteoarthritis of knees, bilateral Morbid obesity Seasonal allergies Migraines Anxiety Diagnosed in 2005 and controlled with citalopram No pertinent past medical history Denies diabetes, asthma, hypertension, seizures, DVT/PE PCP: Sachin Pitts NP Urolithiasis Has had problems with kidney stones since. Surgical History (Updated 03/10/25 @ 17:03 by Marcela Loera APN, KARLENE) Hx of colonoscopy with polypectomy (~2019) [address] Hill Status post hysterectomy 07/06/2020--attempted LAVH converted to JAKE, bilateral salpingectomy and left oophorectomy performed by Dr. Jiang assisted by Dr. Denny at [facility] [place]. At time of surgery patient was noted to have enlarged fibroid uterus however also had signs of PID with hydro-/pyosalpinx of left tube and density lesions in the cul-de-sac which complicated surgery necessitating open surgery. Right ovary was normal and not removed. -Pathology showed secretory endometrium with acute and chronic endometritis, no atypia polyp or malignancy. Myometrium shows fibroids, left fallopian tube shows hydrosalpinx and acute salpingitis. Left ovary normal, right tube normal. Uterus weighs 329 g S/P wisdom tooth extraction History of extraction of renal calculus RIGHT URETERAL STONE EXTRACTION by Dr. Rosenthal in 2018 Family History Father Diabetes Hyperlipidemia Hypertension Sister Breast cancer Diagnosed at age 32 Grandmother Colon cancer Maternal, diagnosed in her 50s Family/Other Colon cancer Maternal uncle, diagnosed in his 50s Mother Uterine cancer Diagnosed at age 68 Lung cancer Diagnosed in 2020 Denies family history of Heart disease Thyroid disease Stroke Social History Smoking and tobacco/nicotine status: never used tobacco/nicotine Alcohol intake: never Substance/Drug Use: never Marital status:
--- NOTE | 2025-07-05 07:06 | W.PM.OPSFHP ---
Same Day Surgery H&P Indication for Procedure/HPI DATE OF PROCEDURE: July 05, 2025 CHIEF COMPLAINT/INDICATIONFOR SURGICAL PROCEDURE: screening colonoscopy PREOP DIAGNOSIS: screening colonoscopy PLANNED PROCEDURE: Operation Date: 07/05/25 07:30 Proposed Procedures p Colonoscopy 65434 G0121, Z12.11(Not Applicable) - Nicolas Sharma MD Medications/Allergies* Home Medications ?Medication ?Instructions ?Recorded ?Confirmed ?Type loratadine 10 mg tablet (Claritin) 10 mg PO DAILY 01/26/20 06/30/25 History multivitamin,cl-ueky-uhruqbce 1 tab PO DAILY 08/14/20 06/30/25 History (Complete Multivitamin tablet) naproxen sodium 220 mg tablet 220 mg PO BID 01/25/21 06/30/25 History (Aleve) Magnesium Glycinate 100 mg PO DAILY 03/10/25 06/30/25 History calcium carbonate (Calcium 600) 600 mg PO DAILY 05/19/25 06/30/25 History Allergies/Adverse Reactions Allergy/AdvReac Type Severity Reaction Status Date / Time No Known Allergies Allergy Verified 03/10/25 15:26 Current Medications: Generic Name Dose Route Start Last Admin Trade Name Freq PRN Reason Stop Dose Admin Sodium Chloride 1,000 mls @ 15 mls/hr 07/05/25 06:33 07/05/25 06:44 Sodium Chloride 0.9% IV 07/06/25 06:32 15 mls/hr .Q24H PRN Administration COLONOSCOPY FLUIDS Pertinent History/Comorbid Conditions* Medical History (Updated 03/10/25 @ 17:03 by Marcela Loera APN, KARLENE) Breast pain (~08/2024) Osteoarthritis of knees, bilateral Morbid obesity Seasonal allergies Migraines Anxiety Diagnosed in 2005 and controlled with citalopram No pertinent past medical history Denies diabetes, asthma, hypertension, seizures, DVT/PE PCP: Sachin Pitts NP Urolithiasis Has had problems with kidney stones since. Surgical History (Updated 03/10/25 @ 17:03 by Marcela Loera APN, KARLENE) Hx of colonoscopy with polypectomy (~2019) [address] Hill Status post hysterectomy 07/06/2020--attempted LAVH converted to JAKE, bilateral salpingectomy and left oophorectomy performed by Dr. Jiang assisted by Dr. eDnny at [facility] [place]. At time of surgery patient was noted to have enlarged fibroid uterus however also had signs of PID with hydro-/pyosalpinx of left tube and density lesions in the cul-de-sac which complicated surgery necessitating open surgery. Right ovary was normal and not removed. -Pathology showed secretory endometrium with acute and chronic endometritis, no atypia polyp or malignancy. Myometrium shows fibroids, left fallopian tube shows hydrosalpinx and acute salpingitis. Left ovary normal, right tube normal. Uterus weighs 329 g S/P wisdom tooth extraction History of extraction of renal calculus RIGHT URETERAL STONE EXTRACTION by Dr. Rosenthal in 2018 Family History (Updated 02/20/21 @ 06:35 by Kenn Sahu MD) Colon cancer Grandmother Maternal, diagnosed in her 50s Family/Other Maternal uncle, diagnosed in his 50s Diabetes Father Hyperlipidemia Father Breast cancer Sister Diagnosed at age 32 Lung cancer Mother Diagnosed in 2020 Hypertension Father Uterine cancer Mother Diagnosed at age 68 Denies family history of Heart disease Thyroid disease Stroke Social History Smoking and tobacco/nicotine status: never used tobacco/nicotine Alcohol intake: never Substance/Drug Use: never Marital status: Pertinent Exam Findings alert, oriented x 3, clear to auscultation bilaterally, regular rate & rhythm and procedure specific exam findings abdomen soft, nt, nd Recommendations Risks and benefits of procedure reviewed and Patient/family agree to proceed Surgery/Procedure today Coding Level of Care Code Acute Code for Chg Fwd
[2025-07-05 08:00] VITALS: BP 100/59; PULSE 70; RESP 16; TEMP 36.6; O2SAT 100
--- NOTE | 2025-07-05 08:35 | ANE.PACU2 ---
Inpatient post-anesthesia follow up: Airway intact: Yes Vital signs: Temperature 97.8 F Pulse Rate 67 Respiratory Rate 16 Blood Pressure 139/91 Pulse Oximetry 98 Oxygen Delivery Me thod Room Air Oxygen Flow Rate Fraction of Inspir ed Oxygen Hydration adequate: Yes Nausea and vomiting: No Pain level: 1 Mental status: Baseline
[2025-07-05 08:47] VITALS: BP 139/91; PULSE 67; RESP 16; O2SAT 98
== END 2025-07-05 08:35 | disposition home or self-care (01) ==
PROVIDERS: PCP Clinical Nurse Specialist Adult Health; Visit Provider Student in an Organized Health Care Education/Training Program
PROC: 0DJD8ZZ Inspection of Lower Intestinal Tract, Via Natural or Artificial Opening Endoscopic (ICD-10-PCS; CPT 45378; principal; 2025-07-05 07:30)
DX: Z12.11 Encounter for screening for malignant neoplasm of colon (principal); E66.01 Morbid (severe) obesity due to excess calories; Z68.42 Body mass index [BMI] 45.0-49.9, adult; Z80.0 Family history of malignant neoplasm of digestive organs; F32.A Depression, unspecified
CPT/HCPCS: 45378; J2704; J3490; J7030

== ENCOUNTER 2025-08-16 07:53 | Outpatient (CLI) | payer OTHER, SELFPAY ==
--- NOTE | 2025-08-16 08:00 | MM_ITS ---
WS: [id number] BILATERAL 3D TOMOSYNTHESIS DIGITAL SCREENING MAMMOGRAPHY WITH CAD CLINICAL INFORMATION: Z12.31 - Encounter for screening mammogram for malignant ... HISTORY: Screening mammogram. No current complaints. COMPARISON: 2023 TECHNIQUE: Bilateral CC and MLO views. FINDINGS: The breasts are composed of heterogeneous fibroglandular density tissue, which can limit the detection of small underlying mass lesions. No suspicious mass, asymmetry, calcifications, or architectural distortion. No evidence of malignancy. Punctate calcifications LEFT breast MM/MM [facility] tomosynthesis [id number] IMPRESSION: DENSITY: The breasts are heterogeneously dense, which may obscure small masses. BI-RADS: 2 - Benign FOLLOW UP: 1 Year Follow-up Recommend return to annual screening mammography.
== END 2025-08-16 07:54 | disposition home or self-care (01) ==
LOC: RAD 07:57
PROVIDERS: PCP Clinical Nurse Specialist Adult Health; Visit Provider Nurse Practitioner Women's Health
DX: Z12.31 Encounter for screening mammogram for malignant neoplasm of breast (principal); R92.323 Mammographic fibroglandular density, bilateral breasts; R92.333 Mammographic heterogeneous density, bilateral breasts; R92.1 Mammographic calcification found on diagnostic imaging of breast
CPT/HCPCS: 77063; 77067